=== PATIENT | female | born 1945 | race Caucasian/White ===

== ENCOUNTER 2020-10-21 15:00 | Outpatient (CLI) | payer MEDICARE, OTHER | END 2020-10-21 15:01 | disposition home or self-care (01) | LOC: SCSRAD 15:00 | PROVIDERS: ATTEND Physician Assistant | DX: M05.79 Rheumatoid arthritis with rheumatoid factor of multiple sites without organ or systems involvement (principal); M47.812 Spondylosis without myelopathy or radiculopathy, cervical region | CPT/HCPCS: 72052 ==

== ENCOUNTER 2020-12-30 10:07 | Day surgery (SDC) | payer MEDICARE ==
[2020-12-27 12:16] VITALS: BMI 29.1
[2020-12-30] MEDS ORDERED: Dexamethasone 20 MG/5 ML VIAL ONE (11:45)
[2020-12-30] MEDS ORDERED: Ondansetron PF 4 MG/2 ML Vial ONE (11:45)
[2020-12-30] MEDS ORDERED: Lidocaine 1% PF 5 ML VIAL ONE (11:45)
[2020-12-30] MEDS ORDERED: ePHEDrine 50 MG/ML VIAL ONE (11:45)
[2020-12-30] MEDS ORDERED: PROPOFOL 200 MG/20 ML VIAL ONE (11:45)
== END 2020-12-30 14:00 | disposition home or self-care (01) ==
LOC: SDC/OP 10:07 → EDSTATUS 12:00 → SDC/OP 14:00
PROVIDERS: ATTEND Neurological Surgery
DX: M48.02 Spinal stenosis, cervical region (principal); M50.01 Cervical disc disorder with myelopathy, high cervical region; M47.12 Other spondylosis with myelopathy, cervical region; G93.9 Disorder of brain, unspecified; M06.9 Rheumatoid arthritis, unspecified; G89.29 Other chronic pain; Z79.899 Other long term (current) drug therapy; Z88.2 Allergy status to sulfonamides; Z91.040 Latex allergy status
CPT/HCPCS: 70553; 72141; J1100; J2405; J2704; J3490